=== PATIENT | male | born 1960 | race Caucasian/White ===

== ENCOUNTER → 2024-03-21 | Outpatient (CLI) | payer MEDICARE, MEDICAID, SELFPAY ==
--- NOTE | 2024-03-21 10:19 | EKG_ITS ---
[facility] Test Date: 2024-03-21 Pat Name: DOTTIE TREVINO Department: Room: - Gender: Male Purification Operator: YUKI : 1960 Requested By: Tr Dangelo Order Number: [id number] Reading MD: Tr Dangelo Measurements Intervals [place] Rate: 80 P: 98 MI: 152 QRS: 72 QRSD: 102 T: 75 QT: 357 QTc: 414 Interpretive Statements SINUS RHYTHM INCOMPLETE RIGHT BUNDLE BRANCH BLOCK MODERATE ST DEPRESSION Compared to ECG 06/03/2023 11:52:17 Incomplete right bundle-branch block now present ST (T wave) deviation now present /store/S0/[id number].pdf
[2024-03-21 11:13] LABS: Basophils # (Auto) 0.1 Thou/mm3 (0.0-0.2); Basophils % (Auto) 1 % (0-2.5); Eosinophils # (Auto) 0.2 Thou/mm3 (0.0-0.5); Eosinophils % (Auto) 2 % (0-10); Hematocrit 32.8 % (41.0-53.0); Hemoglobin 10.6 g/dL (13.5-16.0); Immature Granulocytes % (Auto) 1 % (0-0); Immature Granulocytes Auto 0.08 Thou/mm3 (0.00-0.00); Lymphocytes % (Auto) 14 % (10-50); Mean Corpuscular HGB Conc 32.3 g/dl (31.0-37.0); Mean Corpuscular Hemoglobin 30.6 pg (25.0-35.0); Mean Corpuscular Volume 95 fL (80-100); Monocytes # (Auto) 0.9 Thou/mm3 (0.0-0.8); Monocytes % (Auto) 12 % (0-12); Neutrophils # (Auto) 5.2 Thou/mm3 (1.8-7.7); Neutrophils % (Auto) 70 % (37-80); Nucleated Red Blood Cell % 0 /100 WBC (0); Platelet Count 282 Thou/mm3 (140-440); RDW Standard Deviation 44.2 fL (35.1-43.9); Red Blood Count 3.46 Miln/mm3 (4.50-5.90); White Blood Count 7.4 Thou/mm3 (3.8-10.6)
[2024-03-21 11:24] LABS: Glucose Estimated Average 91 mg/dL (80-131); Hemoglobin A1C 4.8 % Hgb (4.8-6.0)
[2024-03-21 11:25] LABS: Alanine Aminotransferase 13 U/L (10-49); Albumin, Serum 4.3 gm/dL (3.4-4.8); Albumin/Globulin Ratio 1.2 (1.2-2.2); Alkaline Phosphatase 190 U/L (46-116); Anion Gap 9 (7-16); Aspartate Amino Transferase 19 U/L (0-34); BUN/Creatinine Ratio 27 Ratio (12-20); Bilirubin,Total 0.2 mg/dL (0.3-1.2); Blood Urea Nitrogen 40 mg/dL (9-23); Calcium 10.1 mg/dL (8.3-10.6); Calcium (Corrected) 10.1 mg/dL (8.5-10.1); Carbon Dioxide 24.4 mMol/L (20.0-31.0); Chloride 106 mMol/L (98-107); Creatinine (Component) 1.5 mg/dL (0.6-1.3); Globulin 3.5 gm/dL (2.3-3.5); Glucose 105 mg/dL (74-106); Osmolality,Calculated 287 (275-295); Potassium 4.2 mMol/L (3.4-5.1); Sodium 139 mMol/L (136-145); Total Protein 7.8 gm/dL (5.7-8.2); eGFR 51 See Note
[2024-03-21 11:26] LABS: Sed Rate (ESR) 44 mm/hr (0-20)
[2024-03-21 11:32] LABS: B-Type Natriuretic Peptide 50 pg/mL (0-100)
== END | disposition home or self-care (01) ==
PROVIDERS: PCP Family Medicine; Referring Provider Family Medicine; Visit Provider Family Medicine
DX: R07.9 Chest pain, unspecified (principal); E11.65 Type 2 diabetes mellitus with hyperglycemia
CPT/HCPCS: 36415; 80053; 83036; 83880; 85025; 85652; 93005

== ENCOUNTER 2024-04-05 16:19 | Emergency (ER) | payer MEDICARE, MEDICAID, SELFPAY ==
[2024-04-05 16:38] VITALS: PULSE 79; O2SAT 97; BMI 24.2
[2024-04-05 16:45] VITALS: BP 111/83; PULSE 87; RESP 17; TEMP 37; O2SAT 99
--- NOTE | 2024-04-05 17:18 | XR_ITS ---
Examination: CT brain head without contrast. 2-D sagittal coronal reconstructions Date and time of exam:April 05, 2024 1800 hours INDICATIONS: Onset weakness altered mental status today CTDI: vol (mGy):51.1 DLP: (mGycm):1066 Technique: Multiple CT axial sections of the brain have been obtained, 5 mm slice thickness. Contrast has not been administered. 2-D sagittal, coronal reconstructions have been obtained Low dose protocols were performed. One or more of the following dose reduction techniques were used; automated exposure control, adjustment of the mA and/or KV according to patient size, use of iterative reconstruction technique. Findings: Mild to moderate ventricular enlargement. 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 No mass effect or midline shift Basal cisterns are not remarkable. Fourth ventricle is midline. Cranial vault intact. Impression: Negative for acute hemorrhage, mass effect or midline shift More prominent ventricular enlargement compared to December 21, 2006 Recommend elective MRI brain follow-up, pre and postcontrast
--- NOTE | 2024-04-05 17:18 | XR_ITS ---
Examination: AP chest single view Examination April 25, 2024 1957 hours INDICATION: Chest pain today Comparison January 24, 2017 INDICATION: Chest pain. Findings: Normal heart size Accentuation of bronchovascular markings. No lobar pneumonia No pulmonary edema. Prominent osteopenia IMPRESSION: Basilar bronchitis pattern
--- NOTE | 2024-04-05 17:23 | EKG_ITS ---
[facility] Test Date: 2024-04-05 Pat Name: DOTTIE TREVINO Department: Room: - Gender: Male Media Aid: : 1960 Requested By: Romie Dacosta Order Number: [id number] Reading MD: Romie Dacosta Measurements Intervals [place] Rate: 80 P: 77 CO: 165 QRS: 44 QRSD: 92 T: 64 QT: 357 QTc: 413 Interpretive Statements SINUS RHYTHM INCOMPLETE RIGHT BUNDLE BRANCH BLOCK [90+ ms QRS DURATION, TERMINAL R IN V1/V2, 40+ ms S IN I/aVL/V4/V5/V6] MODERATE ST DEPRESSION [0.05+ mV ST DEPRESSION] Compared to ECG 03/21/2024 10:23:53 No significant changes /store/S0/[id number]/[id number].pdf
--- NOTE | 2024-04-05 17:42 | PD.EDWEAK ---
ED Weakness RME/HPI General Chief complaint: Weakness Stated complaint: WEAKER THAN NORMAL Time Seen by Provider: 04/05/24 17:27 Source: patient Arrival date/time: 04/05/24 16:19 63-year-old male patient was nonverbal presents to the emergency room with a chief complaint of being weaker than normal. Care provider at bedside states that the patient has been more pale, weaker, and less active x 2 days. Mode of arrival: ambulatory Limitations: no limitations Related Data Home Medications ?Medication ?Instructions ?Recorded ?Confirmed loratadine 10 mg tablet 10 tab PO QDAY Allergies ##31 11/28/13 phenytoin sodium extended 100 mg tab PO BID PRN SEIZURES ##60 11/28/13 capsule Azelastine NASAL * (ASTELIN NASAL 1 spry NASAL BID #0 spry 01/18/17 *) Estradiol/Norethindrone Acet ##0 01/18/17 (Amabelz 1 mg-0.5 mg Tablet) Levothyroxine * (SYNTHROID *) 100 mcg PO ACBR #0 tabs 01/18/17 lorazepam 2 mg tablet 2 mg PO HS #0 tabs 01/18/17 pantoprazole 40 mg tablet,delayed 40 mg PO QDAY ##0 01/18/17 release (Protonix) tramadol 50 mg tablet (Ultram) 50 mg PO QDAY #0 tabs 01/18/17 Previous Rx's ?Medication ?Instructions ?Recorded sulfamethoxazole 800 1 tab PO Q12H #14 tabs 05/27/22 mg-trimethoprim 160 mg tablet (Bactrim DS) cephalexin 500 mg capsule 500 mg PO BID 7 days #14 caps 04/05/24 Allergies Allergy/AdvReac Type Severity Reaction Status Date / Time NKA Allergy Unknown Uncoded 05/27/22 13:48 Review of Systems Review of Systems Systems Reviewed: All systems reviewed, normal except as documented Constitutional Constitutional: Reports system reviewed and no additional complaints, except as documented, Reports fatigue, Reports fever(s), Denies headache(s) and Reports weakness Eyes Eyes: Reports system reviewed and no additional complaints, except as documented, Denies blurry vision and Denies change in vision ENT Ears, Nose, Mouth, and Throat: Reports system reviewed and no additional complaints, except as documented, Denies otalgia, Denies headache(s), Denies nasal congestion, Denies throat swelling and Denies vertigo Cardiovascular Cardiovascular: Reports system reviewed and no additional complaints, except as documented, Denies chest pain, Denies dyspnea and Denies dyspnea on exertion Respiratory Respiratory: Reports system reviewed and no additional complaints, except as documented, Denies chest congestion, Denies cough, Denies dyspnea, Denies dyspnea on exertion and Denies wheezing Gastrointestinal Gastrointestinal: Reports system reviewed and no additional complaints, except as documented, Denies abdominal pain, Denies cramping, Denies nausea and Denies vomiting Genitourinary Genitourinary: Reports system reviewed and no additional complaints, except as documented, Denies dysuria and Denies hematuria Musculoskeletal Musculoskeletal: Reports system reviewed and no additional complaints, except as documented and Denies back pain Integumentary/Breasts Skin/Breast: Reports system reviewed and no additional complaints, except as documented and Denies wounds Neurologic Neurologic: Reports system reviewed and no additional complaints, except as documented, Denies confusion, Denies headache(s), Denies lack of coordination, Denies vertigo and Reports weakness Psychiatric Psychiatric: Reports system reviewed and no additional complaints, except as documented, Denies anxiety, Denies confusion, Denies depression, Denies paranoia, Denies suicidal ideation and Denies tactile hallucinations Endocrine Endocrine: Reports system reviewed and no additional complaints, except as documented and Reports fatigue Hematologic/Lymphatic Hematologic/Lymphatic: Reports system reviewed and no additional complaints, except as documented and Denies lymphadenopathy Allergic/Immunologic Allergic/Immunologic: Reports system reviewed and no additional complaints, except as documented, Denies throat swelling, Denies urticaria and Denies wheezing Past Medical History Past Medical History NEUROLOGIC: Positive Neurological Disorders (mentally delayed) CARDIAC: Negative Congestive Heart Failure RESPIRATORY: Negative Chronic Obstructive Pulmonary Disease (COPD) GENITOURINARY: Negative Renal Disease MUSCULOSKELETAL: Positive Osteoporosis ENDOCRINE: Negative Diabetes Mellitus Type 1 or Diabetes Mellitus Type 2 Social History SMOKING STATUS: Unknown if ever smoked ED Exam General Limitations: Present no limitations General appearance: Present alert and in no apparent distress Head Head exam: Present atraumatic Eye Eye exam: Present normal appearance, PERRL and EOMI ENT ENT exam: Present normal exam, normal oropharynx and mucous membranes moist Neck Neck exam: Present normal inspection, full ROM and trachea midline Chest Chest inspection: Present normal inspection and symmetric chest wall rise Respiratory Respiratory exam: Present normal lung sounds bilaterally; Absent respiratory distress, wheezes, stridor, accessory muscle use or prolonged expiratory phase Cardiovascular Cardiovascular exam: Present regular rate, normal rhythm and normal heart sounds Abdominal Exam Abdominal exam: Present soft and normal bowel sounds; Absent distention, tenderness, guarding, rebound, rigidity, Hairston's sign or tenderness at McBurney's Point Extremities Exam Extremities exam: Present normal inspection and full ROM Back Exam Back exam: Present normal inspection and full ROM Neurological Exam Neurological exam: Present alert, oriented X3 and CN II-XII intact Psychiatric Psychiatric exam: Present normal affect and normal mood Skin Skin exam: Present warm, dry, intact and normal color Course Quality Measures none Orders Category Date Time Status Bedside COVID-19 Antigen Test NOW Care 04/05/24 17:46 Active Bedside Influenza A&B Antigen Test NOW Care 04/05/24 17:46 Completed EKG (ED ONLY) *Do not use* NOW Care 04/05/24 17:18 Completed EKG (ED ONLY) *Do not use* NOW Care 04/05/24 17:[address] head/brain wo con Stat Exams 04/05/24 17:18 Completed EKG (ED Only) Stat Exams 04/05/24 17:18 Ordered EKG (ED Only) Stat Exams 04/05/24 17:23 Draft XR chest 1V portable Stat Exams 04/05/24 17:18 Completed B-Type Natriuretic Peptide Stat Lab 04/05/24 17:57 Completed CBC Stat Lab 04/05/24 17:57 Completed Comprehensive Metabolic Panel Stat Lab 04/05/24 17:57 Completed Magnesium Stat Lab 04/05/24 17:57 Completed Partial Thromboplastin Time Stat Lab 04/05/24 17:57 Completed Prothrombin Time with INR Stat Lab 04/05/24 17:57 Completed Troponin I Stat Lab 04/05/24 17:57 Completed Troponin I Stat Lab 04/05/24 21:24 Completed Urinalysis Stat Lab 04/05/24 18:41 Completed Sodium Chloride 0.9% 1000 ml [Ns] 1,000 ml Med 04/05/24 19:44 Discontinued IV 999 mls/hr cefTRIAXone [Rocephin] 1,000 mg Med 04/05/24 19:44 Discontinued Sodium Chloride 0.9% [Ns] 50 ml IV X1 Vital Signs Vital signs: Vital Signs Temperature 98.6 F 04/05/24 16:45 Pulse Rate 87 04/05/24 16:45 Respiratory Rate 17 04/05/24 16:45 Blood Pressure 111/83 04/05/24 16:45 Pulse Oximetry (%) 99 04/05/24 16:45 O2 saturation 99% within normal limits Weakness MDM Narrative MDM Narrative:: 63-year-old male patient was nonverbal presents to the emergency room with a chief complaint of being weaker than normal. Care provider at bedside states that the patient has been more pale, weaker, and less active x 2 days. Patient is hemodynamically stable and in no apparent distress. Physical examination showed a soft nontender abdomen, lung sounds are clear bilaterally with no wheezing or any abnormal breath sounds. CBC CMP are within normal limits and there are no acute findings. Urinalysis showed urinary tract infection. Rocephin IV and a liter of fluids were given to the patient Troponin was elevated at 0.052. A repeat troponin was completed 3 hours later and was at 0.051. EKG showed normal sinus rhythm at [address] deviation. BMP was within normal limits. Dr. Adkins my attending physician was consulted. Dr. Adkins, the patient's care provider and I am had a conversation in the patient's room and we decided that the patient is stable for discharge. The patient lives with a care provider and has 24-hour care as well as multiple staff members to take care of him. Antibiotics were sent to the patient's pharmacy. The patient's care provider was educated that she will need to make an appointment with her primary care provider. Patient's care provider stated that she has a meeting with [facility] regarding getting a higher level of care for the patient. Patient's caregiver was educated return to the emergency room for any evidence of worsening signs or symptoms. Patient data External records reviewed:: [facility] previous records Clinical information provided by:: patient Social determinants that could affect healthcare access:: none Patient has the following chronic illnesses:: No chronic illness How is presenting disease/condition affected by chronic disease/condition?: no chronic disease Evaluation data The following diagnostics were reviewed and interpreted by me:: lab results and radiology exam(s) Lab and/or radiology exams considered but not ordered:: Labs and radiology exams considered and ordered Interpretation Summary: Chest [id number]: Normal heart size Accentuation of bronchovascular markings. No lobar pneumonia No pulmonary edema. Prominent osteopenia IMPRESSION: Basilar bronchitis pattern Head CT-Findings: Mild to moderate ventricular enlargement. 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 No mass effect or midline shift Basal cisterns are not remarkable. Fourth ventricle is midline. Cranial vault intact. Impression: Negative for acute hemorrhage, mass effect or midline shift More prominent ventricular enlargement compared to December 21, 2006 Recommend elective MRI brain follow-up, pre and postcontrast Medications / Prescriptions Medications or Prescriptions considered but not ordered:: Medication given Medication administrations:: Medication Administration History Discontinued Medications Sodium Chloride (Ns) 1,000 mls @ 999 mls/hr IV .Q1H1M ONE Stop: 04/05/24 20:44 Last Infusion: 04/05/24 21:33 Dose: Infused Documented By: Admin: 04/05/24 19:51 Dose: 999 mls/hr Documented By: STEVE Ceftriaxone Sodium 1,000 mg/ (Sodium Chloride) 50 mls @ 100 mls/hr IV X1 ONE Stop: 04/05/24 20:13 Last Infusion: 04/05/24 20:20 Dose: Infused Documented By: Admin: 04/05/24 19:50 Dose: 100 mls/hr Documented By: JOHNOR Medication given Consultations Consultation(s) initiated? (list below): No Diagnosis Weakness Differential Diagnosis: acute myocardial infarction, hypothyroidism, sepsis, dehydration and other (Urinary tract infection) Most likely diagnosis given after review of the tests above:: Urinary tract infection Admission Indicated Admission indicated?: not indicated Admission Request Was there a request for admission?: No Disposition Plan Disposition Plan: Discharge Discharge Attestation Discharge Attestation: The patient and all family members were given an opportunity to ask questions and understood the discharge instructions. Discharge instructions specifically effects, indications for sooner follow up or return to the emergency department, and the expected course of current diagnosis. Patient condition: Stable Discharge Plan Plan Patient Disposition: HOME (Self Care) Disposition Comment: Stable Prescriptions/Referrals Prescriptions/Med Rec: New cephalexin 500 mg capsule 500 mg PO BID 7 Days Qty: 14 0RF No Action phenytoin sodium extended 100 MG capsule PO BID PRN (Reason: SEIZURES) Qty: 60 loratadine 10 MG tablet 10 tab PO QDAY Qty: 31 Azelastine NASAL * (ASTELIN NASAL *) 60 SPRAY/30 ML SPRAY 1 spry NASAL BID Qty: 0 tramadol [Ultram] 50 MG tablet 50 mg PO QDAY Qty: 0 Patient Comments: FOR PAIN, NOT TO EXCEED 8 TABS IN 24 HRS lorazepam 2 MG tablet 2 mg PO HS Qty: 0 pantoprazole [Protonix] 40 MG tablet,delayed release (DR/EC) 40 mg PO QDAY Qty: 0 Patient Comments: TO SUPPRESS GASTRIC SECRETIONS Estradiol/Norethindrone Acet (Amabelz 1 mg-0.5 mg Tablet) 1 EACH tablet Qty: 0 Levothyroxine * (SYNTHROID *) 100 MCG tablet 100 mcg PO ACBR Qty: 0 sulfamethoxazole-trimethoprim [Bactrim DS] 800-160 mg tablet 1 tab PO Q12H Qty: 14 0RF Referrals: Tr Dangelo MD [Primary Care Provider] - In 1 week Problem List Clinical Impression: Urinary tract infection Patient/Caregiver Discharge Instructions Education Materials: ED Bladder Infection, Male (Adult) Additional Instructions: Please follow-up with your primary care provider in the next 24 to 48 hours. Patient tested positive for urinary tract infection. Antibiotics were sent to the patient's pharmacy please pick them up and take them as indicated. For any evidence of worsening signs or symptoms please return to the emergency room immediately Please increase his oral and fluid intake. Print Language: Amharic Stand Alone Forms: Claire Award Info., Patient Portal Info Letter ANNA/KEL Supervising Physician ANNA/KEL Supervising Physician: Dr. Adkins
[2024-04-05 18:00] VITALS: BP 140/85; PULSE 82; RESP 19; TEMP 36.6; O2SAT 99
[2024-04-05 18:24] LABS: Basophils # (Auto) 0.1 Thou/mm3 (0.0-0.2); Basophils % (Auto) 1 % (0-2.5); Eosinophils # (Auto) 0.3 Thou/mm3 (0.0-0.5); Eosinophils % (Auto) 3 % (0-10); Hematocrit 32.4 % (41.0-53.0); Hemoglobin 10.4 g/dL (13.5-16.0); Immature Granulocytes % (Auto) 2 % (0-0); Immature Granulocytes Auto 0.13 Thou/mm3 (0.00-0.00); Lymphocytes # (Auto) 1.1 Thou/mm3 (1.0-4.8); Lymphocytes % (Auto) 13 % (10-50); Mean Corpuscular HGB Conc 32.1 g/dl (31.0-37.0); Mean Corpuscular Hemoglobin 29.9 pg (25.0-35.0); Mean Corpuscular Volume 93 fL (80-100); Monocytes # (Auto) 0.8 Thou/mm3 (0.0-0.8); Monocytes % (Auto) 11 % (0-12); Neutrophils # (Auto) 5.5 Thou/mm3 (1.8-7.7); Neutrophils % (Auto) 70 % (37-80); Nucleated Red Blood Cell % 0 /100 WBC (0); Platelet Count 321 Thou/mm3 (140-440); RDW Standard Deviation 43.1 fL (35.1-43.9); Red Blood Count 3.48 Miln/mm3 (4.50-5.90); White Blood Count 7.9 Thou/mm3 (3.8-10.6)
[2024-04-05 18:42] LABS: Alanine Aminotransferase 21 U/L (10-49); Albumin, Serum 4.3 gm/dL (3.4-4.8); Albumin/Globulin Ratio 1.2 (1.2-2.2); Alkaline Phosphatase 224 U/L (46-116); Anion Gap 10 (7-16); Aspartate Amino Transferase 21 U/L (0-34); BUN/Creatinine Ratio 34 Ratio (12-20); Bilirubin,Total 0.3 mg/dL (0.3-1.2); Blood Urea Nitrogen 55 mg/dL (9-23); Calcium 9.8 mg/dL (8.3-10.6); Calcium (Corrected) 9.8 mg/dL (8.5-10.1); Carbon Dioxide 23.2 mMol/L (20.0-31.0); Chloride 105 mMol/L (98-107); Creatinine (Component) 1.6 mg/dL (0.6-1.3); Estimated Creatinine Clearance 47.5 mL/min (>60); Globulin 3.7 gm/dL (2.3-3.5); Glucose 103 mg/dL (74-106); Magnesium 2.3 mg/dL (1.6-2.6); Osmolality,Calculated 290 (275-295); Potassium 3.8 mMol/L (3.4-5.1); Sodium 138 mMol/L (136-145); eGFR 48 See Note
[2024-04-05 18:43] LABS: Partial Thromboplastin Time 29.3 Seconds (22.0-36.0)
[2024-04-05 18:48] LABS: Collection Type, Urine Clean Catch
[2024-04-05 19:00] LABS: B-Type Natriuretic Peptide 61 pg/mL (0-100)
[2024-04-05 19:01] LABS: Bilirubin,Urine Negative (Negative); Blood,Urine 1+ (Negative); Budding Yeast,Urine Present; Clarity,Urine Turbid (Clear/Hazy); Color,Urine Lt-Yellow (Lt Yel-Yel); Glucose, Urine Negative (Negative); Ketones,Urine Negative (Negative); Leukocyte Esterase,Urine Positive (Negative); Nitrite,Urine Negative (Negative); Protein,Urine Trace (Neg - Trace); RBC,Urine 7 /hpf (0-3); Squamous Epithelial Cell,Urine 1 /hpf (0-5); Urobilinogen,Urine Negative mg/dL (0.0-1.0); WBC,Urine 165 /hpf (0-5)
[2024-04-05 19:06] LABS: Troponin I 0.052 ng/mL (0.0-0.045)
--- NOTE | 2024-04-05 19:42 | PD.EDADDENDU ---
Emergency Room Addendum Addendum Narrative: The patient was seen by the midlevel practitioner. I, the co-signing physician, was present during partial ER visit(after 6pm) and available for consultation as needed. I agree with the plan and documentation, additional information provided by me where needed. 1 L NS given.
[2024-04-05] MEDS: SODIUM CHLORIDE 0.9% 1000 ML 1,000 ML 999 ML IV (19:51)
[2024-04-05 21:59] VITALS: BP 106/69; PULSE 86; RESP 12; TEMP 36.6; O2SAT 98
[2024-04-05 22:02] LABS: Troponin I 0.051 ng/mL (0.0-0.045)
--- NOTE | 2024-04-05 23:47 | PC.NURSE ---
DC GIVEN TO [facility], AND PRIMARY FOUNDATION DIRECTOR
== END 2024-04-06 | disposition home or self-care (01) ==
PROVIDERS: Nurse Practitioner Family; Emergency Provider Emergency Medicine; PCP Family Medicine
DX: N39.0 Urinary tract infection, site not specified (principal)
CPT/HCPCS: 36415; 70450; 71045; 80053; 81001; 83735; 83880; 84484; 85025; 85610; 85730; 87400; 87811; 93005; 96361; 96365; 99284; J0696; J7030

== ENCOUNTER 2024-04-16 10:08 | Emergency (ER) | payer MEDICARE, MEDICAID, SELFPAY ==
[2024-04-16] VITALS (7 sets, daily range): BP systolic 114–134; BP diastolic 61–78; PULSE 71–92; RESP 14–18; TEMP 34.7–36.8; O2SAT 95–100; BMI 22.7
--- NOTE | 2024-04-16 10:53 | XR_ITS ---
Examination:Right hip AP, lateral, AP pelvis 3 views Technique: Hip AP lateral, AP pelvis, 3 views Exam date and time:April 16, 2024 1101 hrs. Indications: Patient fell today with injury to the right hip, right hip pain Findings: Prominent osteopenia The films are significantly overpenetrated No acute fracture Impression: Limited study No acute fracture Recommend repeat AP pelvis in 1 day as clinically warranted.
--- NOTE | 2024-04-16 10:53 | XR_ITS ---
Examination: Shoulder,right, 3 views Technique: Shoulder AP internal rotation, AP external rotation, Y view shoulder, 3 views Exam date and time :April 16, 2024 1101 hrs. Indications: Patient fell today with injury to the shoulder, shoulder pain Findings: Significant osteopenia The films are severely overpenetrated No shoulder fracture or dislocation Impression: Limited study, the films are severely overpenetrated No acute fracture Repeat this study short-term as clinically warranted
--- NOTE | 2024-04-16 11:45 | PD.EDFALL ---
ED Fall Injury RME/HPI General Chief Complaint: Fall Stated Complaint: FELL OFF TOILET Time Seen by Provider: 04/16/24 10:21 Arrival date/time: 04/16/24 10:08 This is a 63-year-old male that is brought in by long-term workers. With complaints of him falling off the toilet injuring the right side of his body specifically his right shoulder and his right hip. No other injuries noted. Patient has a history of hypothyroidism seizure disorder Related Data Home Medications ?Medication ?Instructions ?Recorded ?Confirmed loratadine 10 mg tablet 10 tab PO QDAY Allergies ##31 11/28/13 phenytoin sodium extended 100 mg tab PO BID PRN SEIZURES ##60 11/28/13 capsule Azelastine NASAL * (ASTELIN NASAL 1 spry NASAL BID #0 spry 01/18/17 *) Estradiol/Norethindrone Acet ##0 01/18/17 (Amabelz 1 mg-0.5 mg Tablet) Levothyroxine * (SYNTHROID *) 100 mcg PO ACBR #0 tabs 01/18/17 lorazepam 2 mg tablet 2 mg PO HS #0 tabs 01/18/17 pantoprazole 40 mg tablet,delayed 40 mg PO QDAY ##0 01/18/17 release (Protonix) tramadol 50 mg tablet (Ultram) 50 mg PO QDAY #0 tabs 01/18/17 Previous Rx's ?Medication ?Instructions ?Recorded sulfamethoxazole 800 1 tab PO Q12H #14 tabs 05/27/22 mg-trimethoprim 160 mg tablet (Bactrim DS) Allergies Allergy/AdvReac Type Severity Reaction Status Date / Time NKA Allergy Unknown Uncoded 04/16/24 10:11 Course Orders Category Date Time Status XR hip RT w pelvis 2-3V Stat Exams 04/16/24 10:53 Completed XR shoulder RT min 2V Stat Exams 04/16/24 10:53 Completed Vital Signs Vital signs: Vital Signs Temperature 94.5 F L 04/16/24 10:18 Pulse Rate 92 04/16/24 10:18 Respiratory Rate 16 04/16/24 10:18 Blood Pressure 134/78 H 04/16/24 10:18 Pulse Oximetry (%) 100 04/16/24 10:18 Oxygen Delivery Method Room Air 04/16/24 10:18 Fall MDM Narrative MDM Narrative:: HIp Findings: Significant osteopenia The films are severely overpenetrated No shoulder fracture or dislocation Impression: Limited study, the films are severely overpenetrated No acute fracture Repeat this study short-term as clinically warranted shoulder x ray: Findings: Significant osteopenia The films are severely overpenetrated No shoulder fracture or dislocation Impression: Limited study, the films are severely overpenetrated No acute fracture Repeat this study short-term as clinically warranted Discharge Plan Prescriptions/Referrals Prescriptions/Med Rec: No Action phenytoin sodium extended 100 MG capsule PO BID PRN (Reason: SEIZURES) Qty: 60 loratadine 10 MG tablet 10 tab PO QDAY Qty: 31 Azelastine NASAL * (ASTELIN NASAL *) 60 SPRAY/30 ML SPRAY 1 spry NASAL BID Qty: 0 tramadol [Ultram] 50 MG tablet 50 mg PO QDAY Qty: 0 Patient Comments: FOR PAIN, NOT TO EXCEED 8 TABS IN 24 HRS lorazepam 2 MG tablet 2 mg PO HS Qty: 0 pantoprazole [Protonix] 40 MG tablet,delayed release (DR/EC) 40 mg PO QDAY Qty: 0 Patient Comments: TO SUPPRESS GASTRIC SECRETIONS Estradiol/Norethindrone Acet (Amabelz 1 mg-0.5 mg Tablet) 1 EACH tablet Qty: 0 Levothyroxine * (SYNTHROID *) 100 MCG tablet 100 mcg PO ACBR Qty: 0 sulfamethoxazole-trimethoprim [Bactrim DS] 800-160 mg tablet 1 tab PO Q12H Qty: 14 0RF Referrals: Tr Dangelo MD [Primary Care Provider] - In 1 week Patient/Caregiver Discharge Instructions Print Language: Latvian
--- NOTE | 2024-04-16 12:15 | PC.NURSE ---
Pt. had a large brown soft BM in his brief, pt. cleaned and new brief put on pt. home care coordinator at bedside. Pt. tolerated well.
--- NOTE | 2024-04-16 12:32 | EDRME_ITS ---
Rapid Medical Screening Exam [facility] Arrival date/time: 04/16/24 10:08 This is a 63-year-old male that is brought in by long term workers. With complaints of him falling off the toilet injuring the right side of his body specifically his right shoulder and his right hip. No other injuries noted. Patient has a history of hypothyroidism seizure disorder. Unable to get patient's temp in triage. Oral and axillary temps were approximately 94 degrees. Patient's rectal temp was 94.5 I have greeted and performed a focused initial assessment of this patient. Initial appropriate labs ordered at this time. A comprehensive ED assessment and evaluation of the patient and analysis of all test and completion of medical decision making process will be conducted by additional ED provider. Chief Complaint: Fall Time Seen by Provider: 04/16/24 10:21 Vital signs: Vital Signs Temperature 94.5 F L 04/16/24 10:18 Pulse Rate 92 04/16/24 10:18 Respiratory Rate 16 04/16/24 10:18 Blood Pressure 134/78 H 04/16/24 10:18 Pulse Oximetry (%) 100 04/16/24 10:18 Oxygen Delivery Method Room Air 04/16/24 10:18
--- NOTE | 2024-04-16 12:53 | XR_ITS ---
Examination: AP chest single view Technique: AP portable semiupright chest single view Exam date and time: April 16, 2024 1255 hrs. Comparison April 05, 2024 Indications: Hypothermia today. Findings: Opacity both lung bases and right middle lobe consistent with pneumonia Mild enlargement cardiac contour Prominent right mediastinum Prominent osteopenia Impression: Pneumonia bibasilar and right middle lobe
--- NOTE | 2024-04-16 13:32 | PC.NURSE ---
Dr. Dsouza bedside examining pt., pt. caregiver is bedside.
--- NOTE | 2024-04-16 13:32 | EDNOTE_ITS ---
ED Fall Injury RME/HPI General Chief Complaint: Fall Stated Complaint: FELL OFF TOILET Time Seen by Provider: 04/16/24 10:21 Arrival date/time: 04/16/24 10:08 RME / HPI RME / HPI Narrative: 04/16/24 10:08 This is a 63-year-old male that is brought in by shelter workers. With complaints of him falling off the toilet injuring the right side of his body specifically his right shoulder and his right hip. No other injuries noted. Patient has a history of hypothyroidism seizure disorder. Unable to get patient's temp in triage. Oral and axillary temps were approximately 94 degrees. Patient's rectal temp was 94.5 I have greeted and performed a focused initial assessment of this patient. Initial appropriate labs ordered at this time. A comprehensive ED assessment and evaluation of the patient and analysis of all test and completion of medical decision making process will be conducted by additional ED provider. DR. KEITH MAIN ED EVALUATION: 63 year old male presents to the Emergency Department with construction coordinator with complaint of falling off the toilet on his right side of the body. Patient is nonverbal and cannot report injuries; however the construction coordinator reports right shoulder and right hip injury. Related Data Home Medications ?Medication ?Instructions ?Recorded ?Confirmed loratadine 10 mg tablet 10 tab PO QDAY Allergies ##3 1 11/28/13 phenytoin sodium extended 100 mg tab PO BID PRN SEIZUR ES ##60 11/28/13 capsule Azelastine NASAL * (ASTELIN NASAL 1 spry NASAL BID #0 spry 01/18/17 *) Estradiol/Norethindrone Acet ##0 01/18/17 (Amabelz 1 mg-0.5 mg Tablet) Levothyroxine * (SYNTHROID *) 100 mcg PO ACBR #0 tabs 01/18/17 lorazepam 2 mg tablet 2 mg PO HS #0 tabs 01/18/17 pantoprazole 40 mg tablet,delayed 40 mg PO QDAY ##0 release (Protonix) tramadol 50 mg tablet (Ultram) 50 mg PO QDAY #0 tabs 1 03/20/16 Previous Rx's ?Medication ?Instructions ?Recorded sulfamethoxazole 800 1 tab PO Q12H #14 tabs 05/27 mg-trimethoprim 160 mg tablet (Bactrim DS) Allergies Allergy/AdvReac Type Severity Reaction Status Date / Time NKA Allergy Unknown Uncoded 04/16/24 10:11 Review of Systems Review of Systems ROS Unobtainable: unobtainable due to medical condition Past Medical History Past Medical History NEUROLOGIC: Positive Neurological Disorders (mentally delayed) MUSCULOSKELETAL: Positive Osteoporosis Social History SMOKING STATUS: Never smoker SUBSTANCE USE: does not use ALCOHOL: Never ED Exam Narrative Physical exam: GENERAL APPEARANCE: Well hydrated, well nourished, in no acute distress, smiling occasionally, follows commands, nonverbal, at baseline VITALS: All vitals were reviewed and the pulse ox is 100% on room air which is normal according to my interpretation. HEENT: Normocephalic, atramatic, EOMI, EACs are patent. There is no bulge or retraction. Throat without erythema or exudate. Moist oromucosa. No jaundice NECK: Supple, no JVD or bruits. CARDIOVASCULAR: Heart regular without S3-S4 or murmur. No rubs or gallops. LUNGS/CHEST: Clear to auscultation bilaterally. No rales, rhonchi, or wheezing. Normal inspection. ABDOMEN: Soft, nontender, with normal bowel sounds. No pulsatile masses. No rebound, rigidity, or guarding. No incarcerated hernia. Normal inspection and palpation. EXTREMITIES: No edema, clubbing, or cyanosis. Intact CSM. Normal inspection and palpation. FROM. SKIN: Warm and dry without rashes. Normal inspection, no bruises noted anywhere. MUSCULOSKELETAL: No gross deformity, full ROM all extremities. Normal inspection. NEURO: Nonverbal, at baseline. PSYCHIATRIC: Normal mood and affect. No psychosis. Course Quality Measures none Orders Category Date Time Status Bedside COVID-19 Antigen Test NOW Care 04/16/24 12:52 Active Bedside Influenza A&B Antigen Test NOW Care 04/16/24 12:52 Completed Initiate Warming Therapy NOW Care 04/16/24 13:17 Completed Initiate Warming Therapy X1 Care 04/16/24 13:49 Active XR chest 1V Stat Exams 04/16/24 12:53 Completed XR hip RT w pelvis 2-3V Stat Exams 04/16/24 10:53 Completed XR shoulder RT min 2V Stat Exams 04/16/24 10:53 Completed CBC Stat Lab 04/16/24 13:45 Completed Comprehensive Metabolic Panel Stat Lab 04/16/24 13:45 Completed Free T4 (Free Thyroxine) Stat Lab 04/16/24 13:45 Completed TSH [Thyroid Stimulating Hormone] Stat Lab 04/16/24 13:45 Completed Urinalysis, C/S if Indicated Stat Lab 04/16/24 13:46 Completed Urine Culture Stat Lab 04/16/24 13:46 Received Sodium Chloride 0.9% 500 ml [Ns] 500 ml Med 04/16/24 13:18 Discontinued IV 999 mls/hr Vital Signs Vital signs: Vital Signs Temperature 94.5 F L 04/16/24 10:18 Pulse Rate 92 04/16/24 10:18 Respiratory Rate 16 04/16/24 10:18 Blood Pressure 134/78 H 04/16/24 10:18 Pulse Oximetry (%) 100 04/16/24 10:18 Oxygen Delivery Method Room Air 04/16/24 10:18 Fall MDM Narrative MDM Narrative:: I, Kaitlin Cordova, am scribing for and in the presence of Dr. Keith. CBC is negative. BUN/creatinine is 47 and 1.4 respectively which is unchanged from before. The patient does have a history of chronic renal insufficiency. Thyroxine T4 is negative. TSH is little elevated. But as long as T4 is negative the end result is normal. UA is negative. X-ray of the chest was interpreted by me: Clear lungs. Heart normal. Mediastinum normal. Bones normal. X-ray of the right hip interpreted by me: No fracture. No dislocation. Normal alignment. Normal hips. Normal pelvis. Normal acetabulae. X-ray of the right shoulder interpreted by me: No fracture. No dislocation. Normal alignment. Normal visible part of the scapula. Normal visible part of the clavicle. Normal visible part of the upper right ribs When the patient presented here he is temperature was 94.5 rectally. He was given warming blanket as well as warm saline IV bolus. By the time of this dictation which is 6:30 PM, he is alert awake not acute distress. Good color. Temperature now is 98.3. No sign of sepsis. Patient is surrounded by his care provider from the shelter. And they will drive him home. Patient data External records reviewed:: [facility] previous records (Reviewed last ED visit dated 04/05/24 discharged with the following: Urinary tract infection) Clinical information provided by:: other (specify) (construction coordinator) Social determinants that could affect healthcare access:: none Patient has the following chronic illnesses:: Patient has a history of hypothyroidism seizure disorder. How is presenting disease/condition affected by chronic disease/condition?: exacerbated by Evaluation data The following diagnostics were reviewed and interpreted by me:: lab results and radiology exam(s) Lab and/or radiology exams considered but not ordered:: none Interpretation Summary: See above under MDM narrative. RADIOLOGY Procedure(s): XR hip RT w pelvis 2-3V Accession Number(s): [id number] cc: Kyle Kirby MD; Janel Fang NP; Tr Dangelo MD~ Examination:Right hip AP, lateral, AP pelvis 3 views Technique: Hip AP lateral, AP pelvis, 3 views Exam date and time:April 16, 2024 1101 hrs. Indications: Patient fell today with injury to the right hip, right hip pain Findings: Prominent osteopenia The films are significantly overpenetrated No acute fracture Impression: Limited study No acute fracture Recommend repeat AP pelvis in 1 day as clinically warranted. Dictated By: Kyle Kirby MD Procedure(s): XR shoulder RT min 2V Accession Number(s): [id number] cc: Kyle Kirby MD; Janel Fang NP~ Examination: Shoulder,right, 3 views Technique: Shoulder AP internal rotation, AP external rotation, Y view shoulder, 3 views Exam date and time :April 16, 2024 1101 hrs. Indications: Patient fell today with injury to the shoulder, shoulder pain Findings: Significant osteopenia The films are severely overpenetrated No shoulder fracture or dislocation Impression: Limited study, the films are severely overpenetrated No acute fracture Repeat this study short-term as clinically warranted Dictated By: Kyle Kirby MD Procedure(s): XR chest 1V Accession Number(s): [id number] cc: Kyle Kirby MD; Janel Fang NP; Tr Dangelo MD~ Examination: AP chest single view Technique: AP portable semiupright chest single view Exam date and time: April 16, 2024 1255 hrs. Comparison April 05, 2024 Indications: Hypothermia today. Findings: Opacity both lung bases and right middle lobe consistent with pneumonia Mild enlargement cardiac contour Prominent right mediastinum Prominent osteopenia Impression: Pneumonia bibasilar and right middle lobe Dictated By: Kyle Kirby MD Medications / Prescriptions Medications or Prescriptions considered but not ordered:: none Medication administrations:: Medication Administration History Discontinued Medications Sodium Chloride (Ns) 500 mls @ 999 mls/hr IV .Q31M ONE Stop: 04/16/24 13:48 Last Infusion: 04/16/24 15:34 Dose: Infused Documented By: Admin: 04/16/24 14:22 Dose: 999 mls/hr Documented By: RITESH see above Consultations Consultation(s) initiated? (list below): No Diagnosis Fall Differential Diagnosis: syncope, dislocation of shoulder region and other (Sepsis) Most likely diagnosis given after review of the tests above:: Hypothermia Admission Indicated Admission indicated?: not indicated Admission Request Was there a request for admission?: No Disposition Plan Disposition Plan: Discharge Discharge Attestation Discharge Attestation: The patient and all family members were given an opportunity to ask questions and understood the discharge instructions. Discharge instructions specifically effects, indications for sooner follow up or return to the emergency department, and the expected course of current diagnosis. Patient condition: Stable Discharge Plan Plan Patient Disposition: HOME (Self Care) Disposition Comment: Stable and improved Prescriptions/Referrals Prescriptions/Med Rec: No Action phenytoin sodium extended 100 MG capsule PO BID PRN (Reason: SEIZURES) Qty: 60 loratadine 10 MG tablet 10 tab PO QDAY Qty: 31 Azelastine NASAL * (ASTELIN NASAL *) 60 SPRAY/30 ML SPRAY 1 spry NASAL BID Qty: 0 tramadol [Ultram] 50 MG tablet 50 mg PO QDAY Qty: 0 Patient Comments: FOR PAIN, NOT TO EXCEED 8 TABS IN 24 HRS lorazepam 2 MG tablet 2 mg PO HS Qty: 0 pantoprazole [Protonix] 40 MG tablet,delayed release (DR/EC) 40 mg PO QDAY Qty: 0 Patient Comments: TO SUPPRESS GASTRIC SECRETIONS Estradiol/Norethindrone Acet (Amabelz 1 mg-0.5 mg Tablet) 1 EACH tablet Qty: 0 Levothyroxine * (SYNTHROID *) 100 MCG tablet 100 mcg PO ACBR Qty: 0 sulfamethoxazole-trimethoprim [Bactrim DS] 800-160 mg tablet 1 tab PO Q12H Qty: 14 0RF Referrals: Tr Dangelo MD [Primary Care Provider] - In 1 week Problem List Clinical Impression: Hypothermia Patient/Caregiver Discharge Instructions Education Materials: ED Hypothermia Treatment, ED Hypothermia Prevention Additional Instructions: Keep the patient warm. And well-hydrated. Follow-up with his medical doctor in the next 72 hours for recheck and further care and follow-up. [facility] if any problem Print Language: Arabic Stand Alone Forms: Claire Award Info., Patient Portal Info Letter
[2024-04-16 14:00] LABS: Collection Type, Urine Voided
[2024-04-16 14:04] LABS: Basophils % (Auto) 1 % (0-2.5); Eosinophils # (Auto) 0.1 Thou/mm3 (0.0-0.5); Eosinophils % (Auto) 2 % (0-10); Hematocrit 31.7 % (41.0-53.0); Hemoglobin 10.3 g/dL (13.5-16.0); Immature Granulocytes % (Auto) 1 % (0-0); Immature Granulocytes Auto 0.06 Thou/mm3 (0.00-0.00); Lymphocytes # (Auto) 1.2 Thou/mm3 (1.0-4.8); Lymphocytes % (Auto) 20 % (10-50); Mean Corpuscular HGB Conc 32.5 g/dl (31.0-37.0); Mean Corpuscular Hemoglobin 30.3 pg (25.0-35.0); Mean Corpuscular Volume 93 fL (80-100); Monocytes # (Auto) 0.8 Thou/mm3 (0.0-0.8); Monocytes % (Auto) 14 % (0-12); Neutrophils # (Auto) 3.6 Thou/mm3 (1.8-7.7); Neutrophils % (Auto) 62 % (37-80); Nucleated Red Blood Cell % 0 /100 WBC (0); Platelet Count 247 Thou/mm3 (140-440); RDW Standard Deviation 45.1 fL (35.1-43.9); White Blood Count 5.8 Thou/mm3 (3.8-10.6)
--- NOTE | 2024-04-16 14:09 | PC.NURSE ---
Pt. to room 9 via wheel chair here from [facility], caregivers (2) at bedside. Pt. does not ambulate and is non verbal. Pt. makes sounds and that is it.
[2024-04-16] MEDS: SODIUM CHLORIDE 0.9% 500 ML 500 ML 999 ML IV (14:22)
[2024-04-16 14:28] LABS: Alanine Aminotransferase 32 U/L (10-49); Albumin, Serum 4.1 gm/dL (3.4-4.8); Albumin/Globulin Ratio 1.3 (1.2-2.2); Alkaline Phosphatase 200 U/L (46-116); Anion Gap 6 (7-16); Aspartate Amino Transferase 45 U/L (0-34); BUN/Creatinine Ratio 34 Ratio (12-20); Bilirubin,Total 0.3 mg/dL (0.3-1.2); Blood Urea Nitrogen 47 mg/dL (9-23); Calcium 10.9 mg/dL (8.3-10.6); Calcium (Corrected) 10.9 mg/dL (8.5-10.1); Carbon Dioxide 26.9 mMol/L (20.0-31.0); Chloride 106 mMol/L (98-107); Creatinine (Component) 1.4 mg/dL (0.6-1.3); Estimated Creatinine Clearance 48.9 mL/min (>60); Free T4 (Free Thyroxine) 1.12 ng/dL (0.89-1.76); Globulin 3.2 gm/dL (2.3-3.5); Glucose 75 mg/dL (74-106); Osmolality,Calculated 288 (275-295); Potassium 4.5 mMol/L (3.4-5.1); Sodium 139 mMol/L (136-145); Thyroid Stimulating Hormone 8.46 uIU/mL (0.55-4.78); Total Protein 7.3 gm/dL (5.7-8.2); eGFR 56 See Note
[2024-04-16 15:33] LABS: Bilirubin,Urine Negative (Negative); Blood,Urine Negative (Negative); Clarity,Urine Turbid (Clear/Hazy); Color,Urine Lt-Yellow (Lt Yel-Yel); Glucose, Urine Negative (Negative); Hyaline Casts,Urine < 1 /hpf (0-1); Ketones,Urine Negative (Negative); Leukocyte Esterase,Urine Positive (Negative); Nitrite,Urine Negative (Negative); PH,Urine 5.5 (5.0-7.0); Protein,Urine Negative (Neg - Trace); RBC,Urine 5 /hpf (0-3); Specific Gravity,Urine 1.012 (1.001-1.035); Squamous Epithelial Cell,Urine 1 /hpf (0-5); Urobilinogen,Urine Negative mg/dL (0.0-1.0); WBC,Urine 78 /hpf (0-5)
[2024-04-16 16:07] LABS: Culture Indicated,Urine Yes
== END 2024-04-16 19:21 | disposition intermediate care facility (04) ==
PROVIDERS: Nurse Practitioner Family; Emergency Provider Emergency Medicine; PCP Family Medicine
DX: R68.0 Hypothermia, not associated with low environmental temperature (principal); S79.911A Unspecified injury of right hip, initial encounter; S49.91XA Unspecified injury of right shoulder and upper arm, initial encounter; J18.9 Pneumonia, unspecified organism; N18.9 Chronic kidney disease, unspecified; E03.9 Hypothyroidism, unspecified; G40.909 Epilepsy, unspecified, not intractable, without status epilepticus; M81.0 Age-related osteoporosis without current pathological fracture; W18.11XA Fall from or off toilet without subsequent striking against object, initial encounter; Y92.091 Bathroom in other non-institutional residence as the place of occurrence of the external cause
CPT/HCPCS: 36415; 71045; 73030; 73502; 80053; 80185; 81001; 84439; 84443; 85025; 87086; 87400; 87811; 96360; 99284; J7040